=== PATIENT | female | born 1995 | race Caucasian/White ===

== ENCOUNTER 2016-09-11 12:03 | Emergency (ER) | payer MEDICAID | END 2016-09-11 15:19 | disposition home or self-care (01) | LOC: D.ER 12:03 | DX: J45.901 Unspecified asthma with (acute) exacerbation (principal); J20.9 Acute bronchitis, unspecified; F90.9 Attention-deficit hyperactivity disorder, unspecified type; F31.9 Bipolar disorder, unspecified ==

== ENCOUNTER 2016-09-12 22:54 | Outpatient (CLI) | payer MEDICAID | END 2016-09-13 00:04 | disposition home or self-care (01) | LOC: D.LDO 22:54 → D.LD 23:43 → D.LDO 09-13 00:04 | DX: Z34.03 Encounter for supervision of normal first pregnancy, third trimester (principal); Z3A.38 38 weeks gestation of pregnancy ==

== ENCOUNTER → 2016-09-24 03:50 | Outpatient (CLI) | payer MEDICAID ==
[~2016-09-24 03:50] MED LIST: ALAVERT10 MG/TAB PO; IBUPROFEN600 MG PO; PERCOCET 5-3251 TAB PO; PRENATAL COMPLE1 TAB PO; ZANTAC150 MG PO
[2016-09-24 05:00] LABS: APPEARANCE HAZY (CLEAR); BILIRUBIN NEGATIVE (NEGATIVE); COLOR YELLOW (YELLOW); GLUCOSE NEGATIVE (NEGATIVE); KETONE SMALL mg/dL (NEGATIVE); LEUKOCYTE ESTERASE NEGATIVE (NEGATIVE); NITRITE NEGATIVE (NEGATIVE); PROTEIN NEGATIVE (NEGATIVE); UROBILINOGEN NORMAL (NORMAL)
== END ==
LOC: D.LDO 03:50
PROVIDERS: Obstetrics & Gynecology
DX: O26.853 Spotting complicating pregnancy, third trimester (principal); Z3A.39 39 weeks gestation of pregnancy; M54.9 Dorsalgia, unspecified

== ENCOUNTER 2016-09-26 12:56 | Inpatient (IN) | payer MEDICAID ==
[~2016-09-26] VITALS: Ht 160 cm; Wt 98.0 kg
[2016-09-30] MEDS ORDERED: ALAVERT10 MG/TAB PO (23:26)
[2016-09-30] MEDS ORDERED: PRENATAL COMPLE1 TAB PO (23:26)
[2016-09-30 23:27] VITALS: BP 136/69; Ht 160 cm; Wt 98.0 kg
[2016-09-30] MEDS ORDERED: ZANTAC150 MG PO (23:27)
[2016-10-01 00:29] LABS: HEMATOCRIT 35.2 % (36.0-48.0); MCH 30.2 pg (26.0-34.0); MCHC 34.1 g/dL (31.0-37.0); MCV 88.7 fL (80.0-100.0); MEAN PLATELET VOLUME 10.8 fL (7.4-10.4); RBC 3.97 10x6/uL (4.00-5.40); WBC 13.5 10x3/uL (4.8-10.8)
[2016-10-01 00:32] LABS: APPEARANCE HAZY (CLEAR); BILIRUBIN NEGATIVE (NEGATIVE); COLOR YELLOW (YELLOW); GLUCOSE NEGATIVE (NEGATIVE); KETONE NEGATIVE (NEGATIVE); LEUKOCYTE ESTERASE TRACE (NEGATIVE); NITRITE NEGATIVE (NEGATIVE); PH 5.5 (5.0-6.0); PROTEIN TRACE mg/dL (NEGATIVE); UROBILINOGEN NORMAL (NORMAL)
[2016-10-01 00:41] LABS: BACTERIA MANY /hpf (NONE SEEN); CALCIUM OXALATE CRYSTALS OCC /hpf (NONE SEEN); GRANULAR CAST RARE /lpf (NONE SEEN); HYALINE CAST OCC /lpf (NONE SEEN); RED CELLS - URINE 0-5 /hpf (0-5); YEAST >1+ WITH HYPHAE /hpf (NONE SEEN)
[2016-10-01 19:45] VITALS: BP 138/82
--- NOTE | 2016-10-01 19:45 | NUR ---
PT RECEIVED SITTING UP IN BED HOLDING IN ARMS. AAOX3. FAMILY MEMBERS AT BEDSIDE. PT RATES PAIN 2/10. VSS. S/L NOTED TO RIGHT HAND. DRESSING CDI. HEART RRR. LUNGS - INSPIRATORY WHEEZES NOTED TO BILATERAL UPPER LOBES. LOWER LOBES CLEAR. RESPIRATIONS EVEN, NON-LABORED. O2 SAT-99% ON ROOM AIR. ABDOMEN SOFT. FUNDUS FIRM AND MIDLINE U/2. SMALL LOCHIA RUBRA NOTED TO HUGH PAD AT THIS TIME. PERINEAL AREA FREE OF EDEMA. PT DENIES NEEDS AT THIS TIME. BED LOW. PHONE AND CALL LIGHT IN REACH. SRX2.
--- NOTE | 2016-10-01 20:45 | NUR ---
PT UP TO USE RESTROOM AT THIS TIME. GAIT STEADY. AFTER PTS UNSUCCESSFUL ATTEMPT TO VOID PTS FUNDUS IS FIRM AND MIDLINE AT U/2. NO EVIDENCE OF BLADDER DISTENTION AT THIS TIME.PT RATES PAIN 7/10 AT THIS TIME. ADMINISTERED PERCOCET PO PER ORDERS AND INFORMED PT WE WOULD GIVE MEDICINE TIME TO TAKE EFFECT AND TRY TO VOID AGAIN. ENCOURAGED FLUIDS AT THIS TIME WELL. PT VERBALIZED UNDERSTANDING. DENIES OTHER NEEDS BED LOW. PHONE AND CALL LIGHT IN REACH. SRX2.
--- NOTE | 2016-10-01 21:22 | NUR ---
ADMINISTERED MILK OF MAG PER ORDERS AT THIS TIME. PT DENIES NEEDS AT THIS TIME. FAMILY MEMBERS AT BEDSIDE. BED LOW. PHONE AND CALL LIGHT IN REACH. SRX2.
--- NOTE | 2016-10-01 21:57 | NUR ---
REASSESSED PTS PAIN AT THIS TIME. RATES PAIN 5/10. STATES SHE WOULD LIKE TO WAIT A LITTLE LONGER BEFORE TRYING TO VOID AGAIN. FAMILY MEMBERS AT BEDSIDE. BED LOW. PHONE AND CALL LIGHT IN REACH. SRX2.
--- NOTE | 2016-10-01 22:25 | NUR ---
PT BEVERAGE HOST LIGHT. STATES SHE WOULD LIKE TO GET UP TO TRY AND VOID AGAIN. PT VOIDED APPROX. 300 CC NISH URINE. MODERATE LOCHIA RUBRA NOTED TO HUGH PAD. ASSISTED PT INTO SHOWER AT THIS TIME. BED LINEN CHANGE DONE AT THIS TIME WELL. PT DENIES NEEDS. BED LOW. PHONE AND CALL LIGHT IN REACH. SRX2.
--- NOTE | 2016-10-01 23:05 | NUR ---
PT BACK IN BED AFTER SHOWERING. ADMINISTERED MOTRIN PO PER ORDERS FOR PAIN 7/10 IN PERINEAL AREA. PT DENIES OTHER NEEDS AT THIS TIME. BED LOW. PHONE AND CALL LIGHT IN REACH. SRX2.
[2016-10-01 23:20] VITALS: BP 143/77
--- NOTE | 2016-10-01 23:20 | NUR ---
PT RESTING QUIETLY AT THIS TIME. BP-143/77 P-92 O2-99% ROOM AIR. RESPIRATIONS EVEN, NON-LABORED. TEMP-98.1 ORALLY. PT APPLIED TUCKS PAD AT THIS TIME FOR PAIN 7/10 IN PERINEUM. REQUESTS PILLOWS AND BLANKETS AT THIS TIME. DENIES OTHER NEEDS. BED LOW. PHONE AND CALL LIGHT IN REACH. SRX2.
--- NOTE | 2016-10-02 00:25 | NUR ---
REASSESSED PTS PAIN AT THIS TIME. RATES PAIN 5/10. DENIES NEEDS. STATES SHE IS GOING TO GET UP TO TRY AND PEE AGAIN. BED LOW. PHONE AND CALL LIGHT IN REACH. SRX2.
--- NOTE | 2016-10-02 00:36 | NUR ---
PT VOIDED APPROX 400 CC AT THIS TIME. DENIES NEEDS. FAMILY MEMBERS AT BEDSIDE. BED LOW. PHONE AND CALL LIGHT IN REACH. SRX2.
--- NOTE | 2016-10-02 02:13 | NUR ---
PT RESTING QUIETLY WITH EYES CLOSED AT THIS TIME. RESPIRATIONS EVEN, NON-LABORED. NO ACUTE DISTRESS NOTED AT THIS TIME. BED LOW. PHONE AND CALL LIGHT IN REACH. SRX2.
--- NOTE | 2016-10-02 03:00 | NUR ---
PT RESTING QUIETLY AT THIS TIME WITH EYES CLOSED. RESPIRATIONS EVEN, NON-LABORED. NO ACUTE DISTRESS NOTED AT THIS TIME. BED LOW. PHONE AND CALL LIGHT IN REACH. SRX2.
--- NOTE | 2016-10-02 04:53 | NUR ---
PT FOREST ENGINEER LIGHT. REQUESTS MEDICATION FOR PAIN OF 7/10 AT THIS TIME. STATES IT IS IN HER PERINEAL AREA. ADMINISTERED PERCOCET PO PER ORDERS AT THIS TIME. PT DENIES OTHER NEEDS. BED LOW. PHONE AND CALL LIGHT IN REACH. SRX2.
--- NOTE | 2016-10-02 05:09 | NUR ---
PT CHIEF CONTROLLER STATION LIGHT. C/O PAIN IN PERINEAL AREA. RATES PAIN 7/10. ADMINISTERED MOTRIN PO PER ORDERS AT THIS TIME. INFORMED PT WE WOULD NEED TO GIVE MEDICATION TIME TO TAKE EFFECT. PT USED EPIFOAM, DERMOPLAST, AND TUCKS PAD AND STATES RELIEF IS MINIMAL. BROUGHT PT AN ICE PACK TO PLACE ON PERINEAL AREA. PT DENIES FURTHER NEEDS AT THIS TIME. BED LOW. PHONE AND CALL LIGHT IN REACH. SRX2.
[2016-10-02 05:57] LABS: BASOPHILS 0.1 % (0.0-2.0); EOSINOPHILS 2.4 % (0-7); HEMOGLOBIN 10.9 g/dL (12-16); IMMATURE GRANULOCYTES 0.7 % (0-5); LYMPHOCYTES 13.8 % (15-50); MCH 29.5 pg (26.0-34.0); MCHC 32.1 g/dL (31.0-37.0); MEAN PLATELET VOLUME 11.1 fL (7.4-10.4); MONOCYTES 9.7 % (2-11); NEUTROPHILS 73.3 % (40-80); PLATELET COUNT 150 10x3/uL (130-400); RDW 14.5 % (11.5-14.5); WBC 14.8 10x3/uL (4.8-10.8)
[2016-10-02 06:04] LABS: MCV 91.9 fL (80.0-100.0)
--- NOTE | 2016-10-02 06:23 | NUR ---
REASSESSED PTS PAIN. PT STATES PAIN IS NOT BAD IT WAS. RATES IS 5/10. DENIES NEEDS. BED LOW. PHONE AND CALL LIGHT IN REACH. SRX2.
[2016-10-02 07:26] LABS: RAPID PLASMA REAGIN Non Reactive (Non Reactive)
--- NOTE | 2016-10-02 07:30 | NUR ---
PATIENT IS SITTING UPRIGHT, STYLE IN HER BED. SHE DENIES NEEDS AT THIS TIME. HER BREAKFAST IS ON HER BEDSIDE TABLE, SHE HASN'T BEGUN EATING YET. SHE IS HOLDING HER BABY AND TALKING WITH HER. PATIENT AND I DISCUSSED DISCHARGE PLANS FOR TODAY AND WOUND CARE. SHE STATES THAT HER STITCHED FLESH AND HER TAILBONE ARE TENDER EVEN AFTER MEDICATIONS. CURRENLTY SHE RATES HER PAIN A 4. REINTERATED HER PERICARE WITH DERMABLAST ALTERNATED WITH TUCKS AND EPIFOAM. SHE VERBALIZED UNDERSTANDING AND DENIED QUESTIONS. SHE STATES THAT HER BLEEDING IS LIGHT. ALSO DISCUSSED HER PAIN MEDICAITONS.
[2016-10-02] MEDS ORDERED: PERCOCET 5-3251 TAB PO (08:04)
[2016-10-02] MEDS ORDERED: IBUPROFEN600 MG PO (08:04)
[2016-10-02 08:45] VITALS: BP 135/95
--- NOTE | 2016-10-02 09:40 | NUR ---
AFTER DISCUSSION ABOUT S/S OF ALLERGIC REACTION TO PRBC, THOUGH CHANCES ARE SLIM, ISAAK'S BLOOD INFUSION BEGUN TO THE RIGHT FOREARM AT 125CC PER HOUR WITH THE PRIMED SALINE TO INFUSE FIRST. MEDICAL BILLING AND CODING INSTRUCTOR DISCONNECTED, LR DISPOSED OF. PATIENT IS RATING HER PAIN IN THE ABDOMEN A 2, CRAMPING PAIN. SHE C/O BEING VERY TIRED AND WISHES TO NAP DURING INFUSION. WILL GIVE ORAL MEDICATIONS TO CONTINUE PAIN CONTROL. WILL LEAVE SHORT CATHETER IN PLACE A WHILE LONGER.
--- NOTE | 2016-10-02 10:36 | NUR ---
PATIENT'S INFUSION CONTINUES WITHOUT S/S OF ALLERGIC REACTION. VSS. SPOUSE REMAINS AT THE BEDSIDE. PATIENT WAS RESTING WITH EYES CLOSED WHEN I ENTERED, AWOKE EASILY TO MY VOICE. SHE DENIES DISCOMFORT. IV INSERTION SITE IS WITHOUT REDNESS/IRRITATION.
--- NOTE | 2016-10-02 10:40 | NUR ---
IV SL REMOVED FROM HER RIGHT HAND, CATHETER FULLY INTACT. ISAAK HAS HER PERSONAL BELONGINGS PACKED AND IS READY TO GO HOME WHENEVER HER INFANT IS RELEASED.
--- NOTE | 2016-10-02 14:26 | NUR ---
DISCUSSED DISCHARGE PAPERWORK WITH PATIENT. SHE HAD QUESTIONS ABOUT WOUND CARE. DISCUSSED CLEANLINESS, PERICARE SUPPLIES, S/S OF INFECTION, AND MEDICATIONS. PRESCRIPTION GIVEN.
--- NOTE | 2016-10-02 14:45 | NUR ---
PATIENT REQUESTS PAIN MEDICATIONS FOR C/O PERINEAL PAIN. SHE ALSO STAT ESHTAT HER TAILBONE IS SORE WHEN SHE SITS ON IT SQUARELY. DISCUSSED THE MOVEMENTS OF HER PELVIS DURING CHILDBEARING AND INSTRUCTED THAT THIS WILL LESSEN WITH TIME, HER BODY HEALS. ALSO ENCOURAGED HER TO AMBULATE AROUND THE UNIT SOME PRIOR TO DISCHARGING HOME.
== END 2016-10-02 15:30 | disposition home or self-care (01) | DRG 774 ==
LOC: D.LD → D.WS 09-30 22:22 → D.LD 10-01 07:51 → D.WS 10-01 18:25
PROVIDERS: ADMIT Specialist
PROC: 10E0XZZ Delivery of Products of Conception, External Approach (ICD-10-PCS; principal; 2016-10-01)
PROC: 0W8NXZZ Division of Female Perineum, External Approach (ICD-10-PCS; 2016-10-01)
DX: O99.214 Obesity complicating childbirth (principal); O98.82 Other maternal infectious and parasitic diseases complicating childbirth; Z3A.40 40 weeks gestation of pregnancy; Z37.0 Single live birth; Z68.32 Body mass index [BMI] 32.0-32.9, adult; J45.909 Unspecified asthma, uncomplicated; Z87.891 Personal history of nicotine dependence

== ENCOUNTER 2020-04-07 23:23 | Emergency (ER) | payer SELFPAY ==
[~2020-04-07] VITALS: Ht 160 cm; Wt 104.3 kg
[~2020-04-07 23:23] MED LIST changes: +ALBUTEROL SULF8.5 GM; +HYDROCODON-ACE1 EAC7 PO; +KLONOPIN0.5 MG PO
[2020-04-07 23:42] VITALS: Ht 160 cm; Wt 104.3 kg
[2020-04-07] MEDS ORDERED: CYCLOBENZAPRINE10 MG PO (23:53)
[2020-04-08 00:56] LABS: UDS - AMPHET NEGATIVE QUAL (NEGATIVE); UDS - BARB NEGATIVE QUAL (NEGATIVE); UDS - BENZO NEGATIVE QUAL (NEGATIVE); UDS - COCAINE NEGATIVE QUAL (NEGATIVE); UDS - OPIATE POSITIVE QUAL (NEGATIVE); UDS - PCP NEGATIVE QUAL (NEGATIVE); UDS - THC NEGATIVE QUAL (NEGATIVE)
[2020-04-08 01:01] LABS: BILIRUBIN NEGATIVE (NEGATIVE); HCG URINE NEGATIVE (NEGATIVE); KETONE NEGATIVE (NEGATIVE); NITRITE NEGATIVE (NEGATIVE); UROBILINOGEN NORMAL (NORMAL)
[2020-04-08 01:02] LABS: BACTERIA FEW /hpf (NONE SEEN); EPITHELIAL CELLS 0-5 /hpf (0-5); RED CELLS - URINE NONE SEEN /hpf (0-5); WHITE CELLS - URINE 0-5 /hpf (0-5)
[2020-04-08 01:09] VITALS: BP 125/77
== END 2020-04-08 01:17 | disposition home or self-care (01) ==
LOC: D.ER 23:23
PROVIDERS: Family Medicine
DX: S16.1XXA Strain of muscle, fascia and tendon at neck level, initial encounter (principal); S46.911A Strain of unspecified muscle, fascia and tendon at shoulder and upper arm level, right arm, initial encounter; S39.012A Strain of muscle, fascia and tendon of lower back, initial encounter; V89.2XXA Person injured in unspecified motor-vehicle accident, traffic, initial encounter; Y93.9 Activity, unspecified; Y92.9 Unspecified place or not applicable; J45.909 Unspecified asthma, uncomplicated; I10 Essential (primary) hypertension; K21.9 Gastro-esophageal reflux disease without esophagitis